=== PATIENT | female | born 1945 | race Caucasian/White ===

== ENCOUNTER → 2017-10-09 | Outpatient (CLI) | payer MEDICARE ==
--- NOTE | 2017-10-10 09:02 | BD ---
EXAMINATION TYPE: Axial Bone Density DATE OF EXAM: 10/09/2017 COMPARISON: NONE CLINICAL HISTORY: Height: 64 IN Weight: 306 LBS RISK FACTORS HISTORY OF: Active: MINIMAL Diet low in dairy products/other sources of calcium: YES Postmenopausal woman: AGE 63 MEDICATIONS: Osteoporosis Medications: YES Which medication: ALENDRONATE SODIUM How Lon YEARS Additional Medications: AREDS, ALENDRONATE SODIUM, METOPROLOL, FUROSEMIDE, KLOR-CON, FOLIC ACID, GLIM EPIRIDE, VIT D3, LISINOPRIL, SIMVASTATIN EXAM MEASUREMENTS: Bone mineral densitometry was performed using the [employer] System. Bone mineral density as measured about the Lumbar spine is: ----- L1-L4(G/cm2): 1.389 T Score Values are as follows: ----- L2: 0.4 ----- L3: 1.5 ----- L4: 2.7 ----- L1-L4: 1.7 Bone mineral density BASELINE Bone mineral density about the R hip (g/cm2): 1.028 Bone mineral density about the L hip (g/cm2): 0.844 T Score values are as follows: -----R Neck: -0.1 -----L Neck: -1.4 -----R Total: -1.9 -----L Total: -1.9 Bone mineral density BASELINE IMPRESSION: Osteopenia (T Score between -2.5 and -1) overall in both hips. There is slightly increased risk of fracture and the patient may be considered for treatment. Re-Screen 2-5 years. NOTE: T-SCORE=SD OF THE YOUNG ADULT MEAN.
--- NOTE | 2017-10-22 10:04 | MM ---
Reason for exam: screening (asymptomatic). Last mammogram was performed 2 years and 4 months ago. History: Patient is postmenopausal. Took hormonal contraceptives for 3 months. Physical Findings: A clinical breast exam by your physician is recommended on an annual basis and results should be correlated with mammographic findings. MG Screening Mammo w CAD Bilateral CC and MLO view(s) were taken. XCCL view(s) were taken of the right breast. XCCM view(s) were taken of the left breast. Prior study comparison: May 26, 2015, mammogram, performed at [facility]. There are scattered fibroglandular densities. There is no discrete abnormality. No significant changes when compared with prior studies. ASSESSMENT: Negative, BI-RAD 1 RECOMMENDATION: Routine screening mammogram of both breasts in 1 year.
== END | disposition home or self-care (01) ==
LOC: RADMAMWWP 13:46
PROVIDERS: ATTEND General Practice
DX: Z12.31 Encounter for screening mammogram for malignant neoplasm of breast (principal); M85.89 Other specified disorders of bone density and structure, multiple sites
CPT/HCPCS: 77067; 77080

== ENCOUNTER 2023-08-08 04:39 | Inpatient (IN) | payer MEDICARE ==
--- NOTE | 2023-08-08 04:47 | ED ---
General Adult HPI - General Stated complaint: High potassium Time Seen by Provider: 08/08/23 04:43 - History of Present Illness Initial comments: Dictation was produced using [employer] dictation software. please excuse any grammatical, word or spelling errors. Chief Complaint: 77-year-old female presents with hyperkalemia History of Present Illness: Patient 77-year-old female multiple comorbidities she lives at the long-term. Patient had blood work drawn yesterday. The results came back and patient was found to have a potassium of 6.8. Patient does not have any acute complaints. Patiently allegedly has history of dementia. Patient has stage III chronic kidney disease. The ROS documented in this emergency department record has been reviewed and confirmed by me. Those systems with pertinent positive or negative responses have been documented in the HPI. All other systems are other negative and/or noncontributory. - Related Data Allergies Allergy/AdvReac Type Severity Reaction Status Date / Time Sulfa (Sulfonamide Allergy Swelling Verified 08/08/23 04:49 Antibiotics) Review of Systems ROS Statement: Those systems with pertinent positive or pertinent negative responses have been documented in the HPI. ROS Other: All systems not noted in ROS Statement are negative. General Exam - General Exam Comments Initial Comments: PHYSICAL EXAM: General Impression: Alert and oriented x3, not in acute distress HEENT: Normocephalic atraumatic, extra-ocular movements intact, pupils equal and reactive to light bilaterally, mucous membranes moist. Cardiovascular: Heart regular rate and rhythm Chest: Able to complete full sentences, no retractions, no tachypnea Abdomen: abdomen soft, non-tender, non-distended, no organomegaly Musculoskeletal: Pulses present and equal in all extremities, no peripheral edema Motor: no focal deficits noted Neurological: CN II-XII grossly intact, no focal motor or sensory deficits noted Skin: Intact with no visualized rashes Psych: Normal affect and mood Course Vital Signs 08/08/23 08/08/23 04:40 05:15 Temperature 97.6 F Pulse Rate 73 60 Respiratory 18 18 Rate Blood Pressure 97/50 92/45 O2 Sat by Pulse 98 98 Oximetry EKG Findings - EKG Comments: EKG Findings:: My EKG interpretation: Ventricular rate 60,. Well 206, QRS 163, QTc 408. No obvious P waves to suggest sinus rhythm.. No [place] prolongation, no QTC prolongation, no ST or T-wave changes noted. Overall this EKG is nonspecific. Medical Decision Making - Medical Decision Making Was pt. sent in by a medical professional or institution (BIENVENIDO Silva, PRENATAL NURSE, urgent care, hospital, or long-term...) When possible be specific @ -No Did you speak to anyone other than the patient for history (EMS, parent, family, police, friend...)? What history was obtained from this source @ -No Did you review nursing and triage notes (agree or disagree)? Why? @ -I reviewed and agree with nursing and triage notes Were old charts reviewed (outside hosp., previous admission, EMS record, old EKG, old radiological studies, urgent care reports/EKG's, long-term records)? Report findings @ -No old charts were reviewed Differential Diagnosis (chest pain, altered mental status, abdominal pain women, abdominal pain men, vaginal bleeding, musculoskeletal, weakness, fever, dyspnea, syncope, headache, dizziness, GI bleed, back pain, seizure, CVA, palpatations, mental health)? @ -Differential Weakness: Hypoglycemia, shock, sepsis, hyponatremia, anemia, infection, OK, ETOH, adverse medicine reaction, overdose, stroke, this is not meant to be an all-inclusive list. EKG interpreted by me (3pts min.). @ -None done X-rays interpreted by me (1pt min.). @ -None done CT interpreted by me (1pt min.). @ -None done U/S interpreted by me (1pt. min.). @ -None done What testing was considered but not performed or refused? (CT, X-rays, U/S, labs)? Why? @ -None What meds were considered but not given or refused? Why? @ -None Did you discuss the management of the patient with other professionals (professionals i.e. BIENVENIDO Silva, PRENATAL NURSE, lab, RT, psych nurse, social science analyst, wheel braider, teacher, flight radio officer, briefcase sewer)? Give summary @ -Case discussed with hospitalist for admission Was smoking cessation discussed for >3mins.? @ -No Was critical care preformed (if so, how long)? @ -No Were there social determinants of health that impacted care today? How? (Homelessness, low income, unemployed, alcoholism, drug addiction, transportation, low edu. Level, literacy, decrease access to med. care, long term, rehab)? @ -No Was there de-escalation of care discussed even if they declined (Discuss DNR or withdrawal of care, Hospice)? DNR status @ -No What co-morbidities impacted this encounter? (DM, HTN, Smoking, COPD, CAD, Cancer, CVA, ARF, Chemo, Hep., AIDS, mental health diagnosis, sleep apnea, morbid obesity)? @ -None Was patient admitted / discharged? Hospital course, mention meds given and route, prescriptions, significant lab abnormalities, going to OR and other pertinent info. @ -77-year-old female presents emergency department for hyperkalemia. Patient denies any complaints. Vital signs are stable. Patient allegedly had a potassium of 6.8 performed on outpatient labs. Patient does have history of CKD. Laboratory evaluation obtained. CBC within acceptable limits. Metabolic panel shows potassium of 6.5, elevated renal function with creatinine 3.16 and a BUN of 99. No old labs for comparison. Patient given hyperkalemia cocktail. She does have a pacemaker. Patient reevaluated at bedside 6:30 AM found to be stable to admission. Patient be admitted consultation to nephrology. Undiagnosed new problem with uncertain prognosis? @ -No Drug Therapy requiring intensive monitoring for toxicity (Heparin, Nitro, Insulin, Cardizem)? @ -No Were any procedures done? @ -No Diagnosis/symptom? Acute, or Chronic, or Acute on Chronic? Uncomplicated (without systemic symptoms) or Complicated (systemic symptoms)? @ -Acute kidney failure complicated by hyperkalemia Side effects of treatment? @ -No Exacerbation, Progression, or Severe Exacerbation? @ -No Poses a threat to life or bodily function? How? (Chest pain, USA, OK, pneumonia, PE, COPD, DKA, ARF, appy, cholecystitis, CVA, Diverticulitis, Homicidal, Suicidal, threat to staff... and all critical care pts) @ -yes - Lab Data Result diagrams: 08/08/23 04:47 08/08/23 04:47 Lab Results 08/08/23 08/08/23 Range/Units 04:47 04:47 WBC 8.2 (3.8-10.6) k/uL RBC 3.10 L (3.80-5.40) m/uL Hgb 9.4 L (11.4-16.0) gm/dL Hct 28.7 L (34.0-46.0) % MCV 92.4 (80.0-100.0) fL MCH 30.4 (25.0-35.0) pg MCHC 32.9 (31.0-37.0) g/dL RDW 13.0 (11.5-15.5) % Plt Count 279 (150-450) k/uL MPV 8.1 Neutrophils % 70 % Lymphocytes % 13 % Monocytes % 7 % Eosinophils % 7 % Basophils % 1 % Neutrophils # 5.7 (1.3-7.7) k/uL Lymphocytes # 1.1 (1.0-4.8) k/uL Monocytes # 0.6 (0-1.0) k/uL Eosinophils # 0.6 (0-0.7) k/uL Basophils # 0.1 (0-0.2) k/uL Sodium 136 L (137-145) mmol/L Potassium 6.5 H* (3.5-5.1) mmol/L Chloride 114 H (98-107) mmol/L Carbon Dioxide 12 L (22-30) mmol/L Anion Gap 10 mmol/L BUN 99 H (7-17) mg/dL Creatinine 3.16 H (0.52-1.04) mg/dL Est GFR (CKD-EPI)AfAm 15 (>60 ml/min/1.73 sqM) Est GFR (CKD-EPI)NonAf 13 (>60 ml/min/1.73 sqM) Glucose 102 H (74-99) mg/dL Calcium 11.3 H (8.4-10.2) mg/dL Magnesium 1.9 (1.6-2.3) mg/dL Disposition Clinical Impression: Hyperkalemia Disposition: ADMITTED IP TO THIS HOSP Condition: Serious Referrals: Jony Dillard MD [Primary Care Provider] - 1-2 days Decision Time: 06:30
[2023-08-08 04:58] LABS: Basophils # (A) 0.1 k/uL (0-0.2); Basophils % (A) 1 %; Eosinophils # (A) 0.6 k/uL (0-0.7); Eosinophils % (A) 7 %; HCT 28.7 % (34.0-46.0); HGB 9.4 gm/dL (11.4-16.0); Lymphocytes # (A) 1.1 k/uL (1.0-4.8); Lymphocytes % (A) 13 %; MCH 30.4 pg (25.0-35.0); MCHC 32.9 g/dL (31.0-37.0); MCV 92.4 fL (80.0-100.0); Mean Platelet Volume 8.1; Monocytes # (A) 0.6 k/uL (0-1.0); Monocytes % (A) 7 %; Neutrophils # (A) 5.7 k/uL (1.3-7.7); Neutrophils % (A) 70 %; Platelet Count 279 k/uL (150-450); WBC 8.2 k/uL (3.8-10.6)
[2023-08-08 05:38] LABS: African American GFR (CKD) 15 (>60 ml/min/1.73 sqM); Anion Gap 10 mmol/L; Blood Urea Nitrogen 99 mg/dL (7-17); Calcium 11.3 mg/dL (8.4-10.2); Carbon Dioxide 12 mmol/L (22-30); Chloride 114 mmol/L (98-107); Glucose 102 mg/dL (74-99); Magnesium 1.9 mg/dL (1.6-2.3); Non-African American GFR(CKD) 13 (>60 ml/min/1.73 sqM); Sodium 136 mmol/L (137-145)
[2023-08-08 05:55] LABS: Potassium 6.5 mmol/L (3.5-5.1)
[2023-08-08] MEDS ORDERED: NALOXONE 0.4 MG/ML 1 ML VIAL IV PRN (06:22)
[2023-08-08] MEDS: SODIUM BICARB 8.4% 50 ML SYR (1 MEQ/ML) IV ONE (06:37)
[2023-08-08] MEDS: DEXTROSE 50% SYRINGE 50 ML IVP ONE (06:42)
[2023-08-08] MEDS: INSULIN REGULAR 100 UNIT/ML VIAL (IV) IV ONE (06:43)
[2023-08-08] MEDS: SODIUM CHLORIDE 0.9% 1,000 ML IV SCH (06:44)
[2023-08-08] MEDS: CALCIUM GLUCONATE IN NACL 1 GM in SALINE 1 100ML.BAG IVPB ONE (06:44)
[2023-08-08] MEDS: SODIUM ZIRCONIUM CYCLOSILICATE 10 GM PACKET PO ONE (06:47)
[2023-08-08] MEDS: ALBUTEROL NEB (CONC) 2.5 MG/0.5 ML INHALATION ONE (06:47)
[2023-08-08 07:24] LABS: Glucose,Whole Blood 220 mg/dL (70-110)
[2023-08-08] MEDS ORDERED: ACETAMINOPHEN TAB 325 MG TAB PO PRN (09:36)
[2023-08-08] MEDS ORDERED: PSYLLIUM HUSK 100% 6 GM PACKET PO PRN (09:37)
[2023-08-08] MEDS: ALBUTEROL NEBULIZED 2.5 MG/3 ML INHALATION PRN (11:03)
[2023-08-08] MEDS: LEVOTHYROXINE 50 MCG TAB PO SCH (11:28)
[2023-08-08] MEDS: DAPAGLIFLOZIN PROPANEDIOL 5 MG TABLET PO SCH (11:28)
[2023-08-08] MEDS: MULTIVITAMINS, THERA 1 EACH TAB PO SCH (11:28)
[2023-08-08] MEDS: FOLIC ACID 1 MG TAB PO SCH (11:28)
[2023-08-08] MEDS: HYDROCORTISONE 1% CREAM 30 GM TUBE TOPICAL SCH (11:29)
[2023-08-08] MEDS: DEXTROSE 5% IN WATER 1,000 ML with SODIUM BICARB (1 MEQ/ML) 150 ML IV SCH (11:53)
--- NOTE | 2023-08-08 12:00 | US ---
EXAMINATION TYPE: US kidneys/renal and bladder DATE OF EXAM: 08/08/2023 COMPARISON: NONE CLINICAL INDICATION: Female, 77 years old with history of diogenes; diogenes Exam limited due to body habitus EXAM MEASUREMENTS: Right Kidney: 8.9 x 5.3 x 4.8 cm Left Kidney: 9.6 x 4.7 x 4.8 cm Right Kidney: No hydronephrosis or masses seen. Fat strands seen adjacent to kidney Left Kidney: No hydronephrosis or masses seen. Fat strands seen adjacent to kidney Bladder: mostly empty Bilateral Jets seen: No Renal sizes are lower limits of normal appeared increased cortical echogenicity. There is no evidence for hydronephrosis at this point in time. No nephrolithiasis is seen. No masses are identified on images obtained. The urinary bladder is poorly distended. Bilateral ureteral jets are not seen. IMPRESSION: Evidence of chronic medical renal disease. No hydronephrosis seen bilaterally.
--- NOTE | 2023-08-08 12:30 | XR ---
EXAMINATION TYPE: XR chest 1V DATE OF EXAM: 08/08/2023 CLINICAL HISTORY: Infiltrate TECHNIQUE: Single frontal view of the chest is obtained. COMPARISON: None FINDINGS: There is mild cardiomegaly with dual lead pacemaker. Increased left lung opacity is seen. R ight lung is clear. The osseous structures are demineralized. IMPRESSION: Mild cardiomegaly with diffuse left lung edema and/or acute infiltrate. Progress two-view chest x-ray advised.
--- NOTE | 2023-08-08 13:24 | P.NPCON ---
History of Present Illness - Reason for Consult acute renal failure - History of Present Illness patient is a 77-year-old female who resides at [facility] and was sent into the hospital for elevated potassium of 6.8. Patient is noted to be significantly acidotic with CO2 of 12. Calcium was elevated at 11.3. Creatinine was 3.1 and blood pressure has been low with systolic in the 70s. Maintained on LAURENCE inhibitor's, Aldactone, metformin and Bumex prior to admission. No NSAIDs noted. Patient admits to increased intake of potassium-containing foods recently. No significant constipation. Patient has been voiding. previous creatinine 1.5 on 05/18/2023. Review of Systems as per HPI Past Medical History Past Medical History: Heart Failure, Diabetes Mellitus, Hyperlipidemia, Hypertension, Renal Disease, Rheumatoid Arthritis (RA), Thyroid Disorder History of Any Multi-Drug Resistant Organisms: None Reported Past Surgical History: No Surgical Hx Reported Past Psychological History: No Psychological Hx Reported Smoking Status: Never smoker Past Alcohol Use History: None Reported Past Drug Use History: None Reported Medications and Allergies Home Medications Medication Instructions Recorded Confirmed Type Acetaminophen [Tylenol 8 Hour] 650 mg PO Q6H PRN 08/08/23 08/08/23 History Albuterol Nebulized [Ventolin 2.5 mg INHALATION RT-Q4H PRN 08/08/23 08/08/23 History Nebulized] Apixaban [Eliquis] 5 mg PO BID@0800,1600 08/08/23 08/08/23 History Bumetanide [Bumex] 1 mg PO DAILY@0800 08/08/23 08/08/23 History Empagliflozin [Jardiance] 10 mg PO DAILY 08/08/23 08/08/23 History Ergocalciferol (Vitamin D2) 1,250 mcg PO TH 08/08/23 08/08/23 History [Drisdol (50,000 Iu)] Eucerin Itch Relief Lotion 0.1% 1 applic TOPICAL BID 08/08/23 08/08/23 History Folic Acid 0.8 mg PO DAILY 08/08/23 08/08/23 History Hydrocortisone Cream 1 applic TOPICAL BID 08/08/23 08/08/23 History [Hydrocortisone 1% Cream] Levothyroxine Sodium [Synthroid] 50 mcg PO DAILY 08/08/23 08/08/23 History Metoprolol Succinate (ER) [Toprol 50 mg PO DAILY 08/08/23 08/08/23 History Xl] Multivitamins, Thera [Multivitamin 1 tab PO DAILY 08/08/23 08/08/23 History (formulary)] Psyllium Husk (with Sugar) 1 tsp PO DAILY PRN 08/08/23 08/08/23 History [Metamucil Powder] Simvastatin [Zocor] 40 mg PO HS 08/08/23 08/08/23 History Spironolactone [Aldactone] 125 mg PO DAILY 08/08/23 08/08/23 History lisinopriL [Zestril] 10 mg PO DAILY 08/08/23 08/08/23 History metFORMIN HCL [Glucophage] 500 mg PO BID@0800,1600 08/08/23 08/08/23 History Allergies Allergy/AdvReac Type Severity Reaction Status Date / Time Sulfa (Sulfonamide Allergy Swelling Verified 08/08/23 08:44 Antibiotics) Physical Exam Vitals: Vital Signs Temp Pulse Resp BP Pulse Ox 08/08/23 11:22 63 08/08/23 11:03 63 08/08/23 10:47 63 17 75/30 08/08/23 09:57 61 18 84/35 97 08/08/23 09:00 67 18 86/40 98 08/08/23 08:03 89/34 08/08/23 07:38 97.7 F 68 18 87/54 98 08/08/23 06:53 61 18 08/08/23 06:48 61 18 100/42 99 08/08/23 06:47 62 18 08/08/23 05:15 60 18 92/45 98 08/08/23 04:40 97.6 F 73 18 97/50 98 Intake and Output 08/07/23 08/08/23 08/08/23 22:59 06:59 14:59 Output Total 121 Balance -121 Output: Post Void Residual 121 Other: Weight 110.677 kg patient is awake, comfortable, no acute distress. Alert oriented 3. Examination of the heart S1 and S2 Examination of the lungs bilateral breath sounds are heard Abdomen is soft nontender Examination of lower extremity shows no significant edema LACE STRIPPER exam grossly intact Results - Lab Results Most recent lab results Calcium 11.3 mg/dL (8.4-10.2) H 08/08/23 04:47 Magnesium 1.9 mg/dL (1.6-2.3) 08/08/23 04:47 08/08/23 04:47 08/08/23 09:38 Assessment and Plan Assessment: 1. Acute kidney injury, ATN, nonoliguric secondary to hypotension in the setting of use of LAURENCE inhibitor's. Rule out obstructive uropathy.check UA and ultrasound of the kidneys. 2. Hyperkalemia associated with acute kidney injury metabolic acidosis and use of laurence inhibitors and Aldactone. Currently improved to 5.4. 3. Hypercalcemia associated with volume depletion. Patient denies use of calcium supplements. maintained on IV fluids. 4. Type 2 diabetes maintained on metformin 6. Non-gap metabolic acidosis associated with acute kidney injury. Patient was also on metformin. Lactic acid levels will be ordered. Plan: start IV bicarb. Check bladder scan rule out urine retention. Check ultrasound of the kidneys. Check urine analysis Check lactic acid Obtain workup for hypercalcemia. Continue to hold LAURENCE inhibitor's metformin Aldactone and diuretics. Repeat labs in a.m. Thank you for the consultation. We will continue to follow the patient with you during her hospitalization.
--- NOTE | 2023-08-08 15:12 | P.HPIM ---
History of Present Illness H&P Date: 08/08/23 Chief Complaint: Hi potassium Pleasant 77-year-old patient follows with Dr. Dillard. Currently a resident of [facility]. Chronic stable medical condition include CHF, diabetes hypertension hyperlipidemia chronic kidney disease rheumatoid arthritis hypoth yroid. Patient nonambulatory does not ambulate for about 3 years. Patient was sent in for a potassium of 6.8. Patient's creatinine was 3.3. Note patient's creatinine was 1.5 in May 17 of this year. Patient received calcium gluconate, insulin, sodium bicarbonate and Lokelma earlier today. Patient otherwise asymptomatic. Review of systems: GEN.: None EYES: None HEENT: None NECK: None RESPIRATORY: None CARDIOVASCULAR: None GASTROINTESTINAL: None GENITOURINARY: None MUSCULOSKELETAL: Some joint pains LYMPHATICS: None HEMATOLOGICAL: None PSYCHIATRY: None NEUROLOGICAL: Patient nonambulatory Social history: No smoking. No alcohol. Resident of [facility]. Physical examination: VITAL SIGNS: 97.7, 68, 18, 87/54, 98% room air GENERAL: BMI 40.6, reclining bed awake. EYES: Pupils equal. Conjunctiva maxwell l. HEENT: External appearance of nose and ears normal, oral cavity grossly normal. NECK: JVD not raised; masses not palpable. HEART: First and second heart sounds are normal; no edema. LUNGS: Respiratory rate normal; clear to auscultation. ABDOMEN: Soft, nontender, liver spleen not palpable, no masses palpable. PSYCH: Alert and oriented x3; mood and affect maxwell l. MUSCULOSKELETAL:No Clubbing/cyanosis;muscles-grossly intact NEUROLOGICAL: Cranial nerves grossly intact; no facial asymmetry, has sensation lower extremity. Power 1/5. LYMPHATICS: No lymph nodes palpable in the axilla and neck INVESTIGATIONS, reviewed in the clinical context: EKG tracing personally reviewed by me-ventricular paced rhythm Chest x-ray film personally reviewed by me-portable. Cardiomegaly.'s possible venous prominence Renal ultrasound: Increased cortical echogenicity. No hydronephrosis. August 08, 2023: White count 8.2 hemoglobin 9.4 platelets 279 sodium 136 bicarb 12 potassium 6.5 BUN 99 creatinine 3.16. Repeat potassium 5.4 Previous labs: May 18, 2023: Creatinine 1.5 Assessment and plan: -Hyperkalemia secondary to chronic kidney disease. Patient also on Aldactone. And Zestril. Both Aldactone and Zestril been held. Placed on renal diet. Received sodium bicarbonate. Lokelma. Insulin. -Chronic kidney disease stage IV possibly nephrosclerosis Renal ultrasound shows evidence of chronic kidney disease Sodium bicarbonate drip to correct out any acute component -Metabolic acidosis from chronic kidney disease Sodium bicarbonate drip -Hypothyroid Synthroid 50 mcg a day -Hyperlipidemia Lipitor -History of atrial fibrillation. Currently pacemaker Eliquis -Diabetes mellitus type 2 on oral hypoglycemic Diabetic diet. Follow Accu-Cheks and sliding scale. Stop metformin because of GFR less than 30. Farxiga -Essential hypertension Toprol-XL. -Morbid obesity BMI 40.6 Weight loss measures -Chronic medical debility patient is nonambulatory -Full code Past Medical History Past Medical History: Heart Failure, Diabetes Mellitus, Hyperlipidemia, Hypertension, Renal Disease, Rheumatoid Arthritis (RA), Thyroid Disorder History of Any Multi-Drug Resistant Organisms: None Reported Past Surgical History: No Surgical Hx Reported Past Psychological History: No Psychological Hx Reported Smoking Status: Never smoker Past Alcohol Use History: None Reported Past Drug Use History: None Reported Medications and Allergies Home Medications Medication Instructions Recorded Confirmed Type Acetaminophen [Tylenol 8 Hour] 650 mg PO Q6H PRN 08/08/23 08/08/23 History Albuterol Nebulized [Ventolin 2.5 mg INHALATION RT-Q4H PRN 08/08/23 08/08/23 History Nebulized] Apixaban [Eliquis] 5 mg PO BID@0800,1600 08/08/23 08/08/23 History Bumetanide [Bumex] 1 mg PO DAILY@0800 08/08/23 08/08/23 History Empagliflozin [Jardiance] 10 mg PO DAILY 08/08/23 08/08/23 History Ergocalciferol (Vitamin D2) 1,250 mcg PO TH 08/08/23 08/08/23 History [Drisdol (50,000 Iu)] Eucerin Itch Relief Lotion 0.1% 1 applic TOPICAL BID 08/08/23 08/08/23 History Folic Acid 0.8 mg PO DAILY 08/08/23 08/08/23 History Hydrocortisone Cream 1 applic TOPICAL BID 08/08/23 08/08/23 History [Hydrocortisone 1% Cream] Levothyroxine Sodium [Synthroid] 50 mcg PO DAILY 08/08/23 08/08/23 History Metoprolol Succinate (ER) [Toprol 50 mg PO DAILY 08/08/23 08/08/23 History Xl] Multivitamins, Thera [Multivitamin 1 tab PO DAILY 08/08/23 08/08/23 History (formulary)] Psyllium Husk (with Sugar) 1 tsp PO DAILY PRN 08/08/23 08/08/23 History [Metamucil Powder] Simvastatin [Zocor] 40 mg PO HS 08/08/23 08/08/23 History Spironolactone [Aldactone] 125 mg PO DAILY 08/08/23 08/08/23 History lisinopriL [Zestril] 10 mg PO DAILY 08/08/23 08/08/23 History metFORMIN HCL [Glucophage] 500 mg PO BID@0800,1600 08/08/23 08/08/23 History Allergies Allergy/AdvReac Type Severity Reaction Status Date / Time Sulfa (Sulfonamide Allergy Swelling Verified 08/08/23 08:44 Antibiotics) Physical Exam Vitals: Vital Signs Temp Pulse Resp BP Pulse Ox 08/08/23 11:22 63 08/08/23 11:03 63 08/08/23 10:47 63 17 75/30 08/08/23 09:57 61 18 84/35 97 08/08/23 09:00 67 18 86/40 98 08/08/23 08:03 89/34 08/08/23 07:38 97.7 F 68 18 87/54 98 08/08/23 06:53 61 18 08/08/23 06:48 61 18 100/42 99 08/08/23 06:47 62 18 08/08/23 05:15 60 18 92/45 98 08/08/23 04:40 97.6 F 73 18 97/50 98 Intake and Output 08/07/23 08/08/23 08/08/23 22:59 06:59 14:59 Output Total 121 Balance -121 Output: Post Void Residual 121 Other: Weight 110.677 kg Results CBC & Chem 7: 08/08/23 04:47 08/08/23 09:38 Labs: Abnormal Lab Results - Last 24 Hours (Table) 08/08/23 08/08/23 08/08/23 Range/Units 04:47 04:47 07:22 RBC 3.10 L (3.80-5.40) m/uL Hgb 9.4 L (11.4-16.0) gm/dL Hct 28.7 L (34.0-46.0) % Sodium 136 L (137-145) mmol/L Potassium 6.5 H* (3.5-5.1) mmol/L Chloride 114 H (98-107) mmol/L Carbon Dioxide 12 L (22-30) mmol/L BUN 99 H (7-17) mg/dL Creatinine 3.16 H (0.52-1.04) mg/dL Glucose 102 H (74-99) mg/dL POC Glucose (mg/dL) 220 H (70-110) mg/dL Calcium 11.3 H (8.4-10.2) mg/dL 08/08/23 Range/Units 09:38 RBC (3.80-5.40) m/uL Hgb (11.4-16.0) gm/dL Hct (34.0-46.0) % Sodium (137-145) mmol/L Potassium 5.4 H (3.5-5.1) mmol/L Chloride (98-107) mmol/L Carbon Dioxide (22-30) mmol/L BUN (7-17) mg/dL Creatinine (0.52-1.04) mg/dL Glucose (74-99) mg/dL POC Glucose (mg/dL) (70-110) mg/dL Calcium (8.4-10.2) mg/dL
[2023-08-08] MEDS: APIXABAN 5 MG TAB PO SCH (16:26)
[2023-08-08] MEDS: ATORVASTATIN 20 MG TAB PO SCH (21:27)
[2023-08-09 05:56] LABS: Glucose,Whole Blood 148 mg/dL (70-110)
[2023-08-09] MEDS ORDERED: BUMETANIDE 1 MG TAB PO SCH (08:00)
[2023-08-09] MEDS: ERGOCALCIFEROL 1,250 MCG (50,000 IU) CAPSULE PO SCH (09:48)
[2023-08-09 11:14] VITALS: BMI 40.6
[2023-08-09 11:36] LABS: Glucose,Whole Blood 158 mg/dL (70-110)
--- NOTE | 2023-08-09 11:57 | P.CONS ---
History of Present Illness - Reason for Consult Consult date: 08/09/23 wound care - History of Present Illness This is a 77-year-old patient being seen 3 S. by wound care for nonhealing ulcerations to the right and left buttocks. Patient has stage II pressure ulcer to the right and left buttocks. Ulcerations have fat layer exposure with granulation seen throughout wound edges are attached to the wound base no tunneling or undermining noted. Minimal slough and nonviable tissue present. Patient's past medical history significant for CHF, diabetes, hyperlipidemia, hypertension, chronic kidney disease patient is a former smoker. Review Of Systems: Constitutional: No fever, no chills, no night sweats. No weight change. No weakness, fatigue or lethargy. No daytime sleepiness. Integumentary:reports wounds, no lesions. No rash or pruritus. No unusual bruising. No change in hair or nails. Physical exam: General Appearance: Alert, cooperative, no distress, appears stated age. Skin: See HPI all other Skin color, texture, tugor normal, no rashes or lesions. Neurologic: Alert oriented x3 Assessment: 1. Stage II pressure ulcer left buttocks 2. Stage II pressure ulcer right buttocks 3. Diabetes with skin ulceration Plan: 1. Apply honey gel and bordered foam to the site. Change Sunday. Utilize An air-filled cushion while sitting. Turn patient every 2 hours. Thank you for the consultation any questions please contact the wound care center DNP note has been reviewed and discussed with Dr. Montano and the impression and plan of care has been directed as dictated. Past Medical History Past Medical History: Heart Failure, Diabetes Mellitus, Hyperlipidemia, Hypertension, Renal Disease, Rheumatoid Arthritis (RA), Thyroid Disorder History of Any Multi-Drug Resistant Organisms: None Reported Past Surgical History: No Surgical Hx Reported Past Psychological History: No Psychological Hx Reported Smoking Status: Former smoker Past Alcohol Use History: None Reported Past Drug Use History: None Reported Medications and Allergies Home Medications Medication Instructions Recorded Confirmed Type Acetaminophen [Tylenol 8 Hour] 650 mg PO Q6H PRN 08/08/23 08/08/23 History Albuterol Nebulized [Ventolin 2.5 mg INHALATION RT-Q4H PRN 08/08/23 08/08/23 History Nebulized] Apixaban [Eliquis] 5 mg PO BID@0800,1600 08/08/23 08/08/23 History Bumetanide [Bumex] 1 mg PO DAILY@0800 08/08/23 08/08/23 History Empagliflozin [Jardiance] 10 mg PO DAILY 08/08/23 08/08/23 History Ergocalciferol (Vitamin D2) 1,250 mcg PO TH 08/08/23 08/08/23 History [Drisdol (50,000 Iu)] Eucerin Itch Relief Lotion 0.1% 1 applic TOPICAL BID 08/08/23 08/08/23 History Folic Acid 0.8 mg PO DAILY 08/08/23 08/08/23 History Hydrocortisone Cream 1 applic TOPICAL BID 08/08/23 08/08/23 History [Hydrocortisone 1% Cream] Levothyroxine Sodium [Synthroid] 50 mcg PO DAILY 08/08/23 08/08/23 History Metoprolol Succinate (ER) [Toprol 50 mg PO DAILY 08/08/23 08/08/23 History Xl] Multivitamins, Thera [Multivitamin 1 tab PO DAILY 08/08/23 08/08/23 History (formulary)] Psyllium Husk (with Sugar) 1 tsp PO DAILY PRN 08/08/23 08/08/23 History [Metamucil Powder] Simvastatin [Zocor] 40 mg PO HS 08/08/23 08/08/23 History Spironolactone [Aldactone] 125 mg PO DAILY 08/08/23 08/08/23 History lisinopriL [Zestril] 10 mg PO DAILY 08/08/23 08/08/23 History metFORMIN HCL [Glucophage] 500 mg PO BID@0800,1600 08/08/23 08/08/23 History Allergies Allergy/AdvReac Type Severity Reaction Status Date / Time Sulfa (Sulfonamide Allergy Swelling Verified 08/08/23 08:44 Antibiotics) Physical Exam Vitals: Vital Signs Temp Pulse Pulse Resp BP BP Pulse Ox 08/09/23 05:50 98/53 08/09/23 04:00 81 16 89/52 97 08/09/23 01:05 97.9 F 88 18 93/50 97 08/08/23 23:02 64 18 121/48 98 08/08/23 21:36 68 18 90/46 98 08/08/23 19:29 64 18 90/36 100 08/08/23 18:07 68 20 96/60 99 08/08/23 17:21 63 20 96/38 98 08/08/23 16:27 65 18 110/40 99 08/08/23 15:51 65 18 168/94 99 Intake and Output 08/08/23 08/09/23 08/09/23 22:59 06:59 14:59 Intake Total 118 Output Total 101 Balance 17 Intake: Oral 118 Output: Urine 100 Stool 1 Other: Voiding Method External Catheter Weight 110.677 kg 110.677 kg Results CBC & Chem 7: 08/08/23 04:47 08/08/23 09:38 Labs: Abnormal Lab Results - Last 24 Hours (Table) 08/08/23 08/09/23 08/09/23 Range/Units 14:07 05:53 11:35 POC Glucose (mg/dL) 148 H 158 H (70-110) mg/dL PTH Intact 7.3 L (14.0-72.0) pg/mL Assessment and Plan (1) Stage II pressure ulcer of left buttock Current Visit: Yes Status: Acute Code(s): L89.322 - PRESSURE ULCER OF LEFT BUTTOCK, STAGE 2 SNOMED Code(s): 79361063760567 (2) Stage II pressure ulcer of right buttock Current Visit: Yes Status: Acute Code(s): L89.312 - PRESSURE ULCER OF RIGHT BUTTOCK, STAGE 2 SNOMED Code(s): 92575986115324 (3) Type 2 diabetes mellitus with other skin ulcer Current Visit: Yes Status: Acute Code(s): E11.622 - TYPE 2 DIABETES MELLITUS WITH OTHER SKIN ULCER; L98.499 - NON-PRESSURE CHRONIC ULCER OF SKIN OF SITES W UNSP SEVERITY SNOMED Code(s): 740490582
--- NOTE | 2023-08-09 13:48 | P.PN ---
Subjective patient is seen for follow-up for acute kidney injury. Maintained on IV bicarb. Labs are pending from today. No significant complaints today. post void residual was 121 mL Objective - Vital Signs Vital signs: Vital Signs Temp 97.4 F L 08/09/23 08:00 Pulse 60 08/09/23 08:00 Resp 18 08/09/23 08:00 BP 107/61 08/09/23 08:00 Pulse Ox 97 08/09/23 08:00 FiO2 Intake & Output 08/08/23 08/09/23 08/09/23 18:59 06:59 18:59 Intake Total 236 Output Total 121 102 Balance -121 134 Weight 110.677 kg 110.677 kg Intake: Oral 236 Output: Urine 100 Post Void Residual 121 Stool 2 Other: Voiding Method External Catheter External Catheter - Exam patient is awake, comfortable, no acute distress. Alert oriented 3. Examination of the heart S1 and S2 Examination of the lungs bilateral breath sounds are heard Abdomen is soft nontender Examination of lower extremity shows no significant edema SECURITY SERVICES SPECIALIST exam grossly intact - Labs CBC & Chem 7: 08/08/23 04:47 08/08/23 09:38 Labs: Abnormal Lab Results - Last 24 Hours (Table) 08/08/23 08/09/23 08/09/23 Range/Units 14:07 05:53 11:35 POC Glucose (mg/dL) 148 H 158 H (70-110) mg/dL PTH Intact 7.3 L (14.0-72.0) pg/mL Assessment and Plan Assessment: 1. Acute kidney injury, ATN, nonoliguric secondary to hypotension in the setting of use of LAURENCE inhibitor's. No evidence of obstructive uropathy. Check U/A. 2. Hyperkalemia associated with acute kidney injury metabolic acidosis and use of laurence inhibitors and Aldactone. Currently improved to 5.4. 3. Hypercalcemia associated with volume depletion. Patient denies use of calcium supplements. maintained on IV fluids. PTH is appropriately low. 4. Type 2 diabetes maintained on metformin 6. Non-gap metabolic acidosis associated with acute kidney injury. Patient was also on metformin. Lactic acid level not elevated Plan: continue IV bicarb. Follow-up on labs from today. Continue to avoid nephrotoxic agents.
[2023-08-09 14:06] LABS: African American GFR (CKD) 20 (>60 ml/min/1.73 sqM); Anion Gap 8 mmol/L; Blood Urea Nitrogen 92 mg/dL (7-17); Calcium 10.9 mg/dL (8.4-10.2); Carbon Dioxide 20 mmol/L (22-30); Chloride 108 mmol/L (98-107); Glucose 133 mg/dL (74-99); Non-African American GFR(CKD) 17 (>60 ml/min/1.73 sqM); Potassium 5.1 mmol/L (3.5-5.1); Sodium 136 mmol/L (137-145)
[2023-08-09 16:45] LABS: Glucose,Whole Blood 168 mg/dL (70-110)
--- NOTE | 2023-08-09 17:59 | P.PN ---
Progress Note - Text Progress Note Date: 08/09/23 Chief Complaint: Hi potassium Pleasant 77-year-old patient follows with Dr. Dillard. Currently a resident of [facility]. Chronic stable medical condition include CHF, diabetes hypertension hyperlipidemia chronic kidney disease rheumatoid arthritis h ypothyroid. Patient nonambulatory does not ambulate for about 3 years. Patient was sent in for a potassium of 6.8. Patient's creatinine was 3.3. Note patient's creatinine was 1.5 in May 17 of this year. Patient received calcium gluconate, insulin, sodium bicarbonate and Lokelma earlier today. Patient otherwise asymptomatic. August 08: Propped up in bed. Eating well. Labs are pending this afternoon. Patient has stage II decub left and right buttock and coccyx.-Present on admission. Wound care discussed with nurse. Sodium bicarbonate drip Active Medications Acetaminophen (Acetaminophen Tab 325 Mg Tab) 650 mg PO Q6H PRN PRN Reason: Fever and/ or MILD Pain Albuterol Sulfate (Albuterol Nebulized 2.5 Mg/3 Ml) 2.5 mg INHALATION RT-Q4H PRN PRN Reason: COUGH/WHEEZING Last Admin: 08/08/23 11:03 Dose: 2.5 mg Apixaban (Apixaban 5 Mg Tab) 5 mg PO BID@0800,1600 [facility]; Protocol Last Admin: 08/09/23 09:47 Dose: 5 mg Atorvastatin Calcium (Atorvastatin 20 Mg Tab) 20 mg PO HS [facility] Last Admin: 08/08/23 21:27 Dose: 20 mg Dapagliflozin (Dapagliflozin Propanediol 5 Mg Tablet) 5 mg PO DAILY [facility] Last Admin: 08/09/23 09:47 Dose: 5 mg Ergocalciferol (Ergocalciferol 1,250 Mcg (50,000 Iu) Capsule) 1,250 mcg PO TH [facility] Last Admin: 08/09/23 09:48 Dose: 1,250 mcg Folic Acid (Folic Acid 1 Mg Tab) 1 mg PO DAILY [facility] Last Admin: 08/09/23 09:47 Dose: 1 mg Hydrocortisone (Hydrocortisone 1% Cream 30 Gm Tube) 1 applic TOPICAL BID [facility]; Protocol Last Admin: 08/08/23 21:28 Dose: 1 applic Sodium Chloride (Saline 0.9%) 1,000 mls @ 20 mls/hr IV .Q24H [facility] Last Admin: 08/09/23 05:58 Dose: Not Given Sodium Bicarbonate 150 ml/ (Dextrose/Water) 1,150 mls @ 80 mls/hr IV .[id number] [facility] Last Admin: 08/09/23 03:02 Dose: 80 mls/hr Levothyroxine Sodium (Levothyroxine 50 Mcg Tab) 50 mcg PO 0630 [facility] Last Admin: 08/09/23 05:59 Dose: 50 mcg Multivitamins (Multivitamins, Thera 1 Each Tab) 1 each PO DAILY [facility] Last Admin: 08/09/23 09:48 Dose: 1 each Naloxone HCl (Naloxone 0.4 Mg/Ml 1 Ml Vial) 0.2 mg IV Q2M PRN PRN Reason: Opioid Reversal Psyllium Hydrophilic Mucilloid (Psyllium Husk 100% 6 Gm Packet) 6 gm PO DAILY PRN PRN Reason: Constipation Social history: No smoking. No alcohol. Resident of [facility]. Physical examination: VITAL SIGNS: 97.8, 62, 18, 94/56, 98% room air GENERAL: BMI 40.6, reclining bed awake. EYES: Pupils equal. Conjunctiva maxwell l. HEENT: External appearance of nose and ears normal, oral cavity grossly normal. NECK: JVD not raised; masses not palpable. HEART: First and second heart sounds are normal; no edema. LUNGS: Respiratory rate normal; clear to auscultation. ABDOMEN: Soft, nontender, liver spleen not palpable, no masses palpable. PSYCH: Alert and oriented x3; mood and affect maxwell l. MUSCULOSKELETAL:No Clubbing/cyanosis;muscles-grossly intact Wounds: Stage II on left and right buttock and coccyx.-POA INVESTIGATIONS, reviewed in the clinical context: Vitamin D 25-hydroxy 70.9. PTH low at 7.3 Stool for C. difficile: Negative August 08: Potassium 5.1 BUN 92 creatinine 2.58 bicarb 20. Calcium 10.9 EKG tracing personally reviewed by me-ventricular paced rhythm Chest x-ray film personally reviewed by me-portable. Cardiomegaly.'s possible venous prominence Renal ultrasound: Increased cortical echogenicity. No hydronephrosis. August 08, 2023: White count 8.2 hemoglobin 9.4 platelets 279 sodium 136 bicarb 12 potassium 6.5 BUN 99 creatinine 3.16. Repeat potassium 5.4 Previous labs: May 18, 2023: Creatinine 1.5 Assessment and plan: -Hyperkalemia secondary to chronic kidney disease. Patient also on Aldactone. And Zestril. Both Aldactone and Zestril been held.: Better Placed on renal diet. Received sodium bicarbonate. Lokelma. Insulin. -Chronic kidney disease stage IV possibly nephrosclerosis Renal ultrasound shows evidence of chronic kidney disease Sodium bicarbonate drip to correct out any acute component -Metabolic acidosis from chronic kidney disease: Improving Sodium bicarbonate drip -Stage II decub ulcer on left buttock right buttock sacrum Wound care team follow -Hypothyroid Synthroid 50 mcg a day -Hyperlipidemia Lipitor -Secondary hypercalcemia, likely from dehydration Decreased PTH. Stop vitamin D2 supplement -History of atrial fibrillation. Currently pacemaker Eliquis -Diabetes mellitus type 2 on oral hypoglycemic Diabetic diet. Follow Accu-Cheks and sliding scale. Stop metformin because of GFR less than 30. Farxiga -Essential hypertension Toprol-XL. -Morbid obesity BMI 40.6 Weight loss measures -Chronic medical debility patient is nonambulatory -Full code Past Medical History Past Medical History: Heart Failure, Diabetes Mellitus, Hyperlipidemia, Hypertension, Renal Disease, Rheumatoid Arthritis (RA), Thyroid Disorder History of Any Multi-Drug Resistant Organisms: None Reported Past Surgical History: No Surgical Hx Reported Past Psychological History: No Psychological Hx Reported Smoking Status: Never smoker Past Alcohol Use History: None Reported Past Drug Use History: None Reported Medications and Allergies
[2023-08-09 20:04] LABS: Glucose,Whole Blood 219 mg/dL (70-110)
[2023-08-09] MEDS: INSULIN ASPART (NovoLOG) 100 UNIT/ML VIAL SQ SCH (21:53)
[2023-08-10 06:07] LABS: Glucose,Whole Blood 150 mg/dL (70-110)
[2023-08-10 10:47] VITALS: RESP 18
[2023-08-10 10:48] LABS: African American GFR (CKD) 21 (>60 ml/min/1.73 sqM); Anion Gap 5 mmol/L; Blood Urea Nitrogen 75 mg/dL (7-17); Calcium 10.6 mg/dL (8.4-10.2); Carbon Dioxide 27 mmol/L (22-30); Chloride 103 mmol/L (98-107); Glucose 158 mg/dL (74-99); Non-African American GFR(CKD) 18 (>60 ml/min/1.73 sqM); Potassium 4.7 mmol/L (3.5-5.1); Sodium 135 mmol/L (137-145)
--- NOTE | 2023-08-10 11:43 | P.DS ---
Providers Date of admission: 08/08/23 06:24 Expected date of discharge: 08/10/23 Attending physician: Mayo Miller Consults: 08/08/23 06:11 Consult Physician Routine Consulting Provider: Anamaria Velarde Consult Reason/Comments: Hyperkalemia Do you want consulting provider notified?: Yes Primary care physician: [facility] Course: Chief Complaint: Hi potassium Pleasant 77-year-old patient follows with Dr. Dillard. Currently a resident of [facility]. Chronic stable medical condition include CHF, diabetes hypertension hyperlipidemia chronic kidney disease rheumatoid arthritis hypothyroid. Patient nonambulatory does not ambulate for about 3 years. Patient was sent in for a potassium of 6.8. Patient's creatinine was 3.3. Note patient's creatinine was 1.5 in May 17 of this year. Patient received calcium gluconate, insulin, sodium bicarbonate and Lokelma earlier today. Patient otherwise asymptomatic. August 08: Propped up in bed. Eating well. Labs are pending this afternoon. Patient has stage II decub left and right buttock and coccyx.-Present on admission. Wound care discussed with nurse. Sodium bicarbonate drip August 09: Potassium down to 4.7. Creatinine 2.45. Bicarb 27. Blood pressure running on the lower side. Patient's Toprol-XL, Aldactone, metformin, Zestril all discontinued. Bumex will be changed to 1 mg Sunday. Repeat labs in 3 days Patient oral intake fair. Discussion and discharge planning more than 35 minutes Social history: No smoking. No alcohol. Resident of [facility]. Physical examination: VITAL SIGNS: 97.6, 62, 18, 119/51, 99% room air GENERAL: BMI 40.6, comfortable EYES: Pupils equal. Conjunctiva maxwell l. HEENT: External appearance of nose and ears normal, oral cavity grossly normal. NECK: JVD not raised; masses not palpable. HEART: First and second heart sounds are normal; no edema. LUNGS: Respiratory rate normal; clear to auscultation. ABDOMEN: Soft, nontender, liver spleen not palpable, no masses palpable. PSYCH: Alert and oriented x3; mood and affect maxwell l. MUSCULOSKELETAL:No Clubbing/cyanosis;muscles-grossly intact Wounds: Stage II on left and right buttock and coccyx.-POA INVESTIGATIONS, reviewed in the clinical context: Vitamin D 25-hydroxy 70.9. PTH low at 7.3 Stool for C. difficile: Negative August 08: Potassium 5.1 BUN 92 creatinine 2.58 bicarb 20. Calcium 10.9 EKG tracing personally reviewed by me-ventricular paced rhythm Chest x-ray film personally reviewed by me-portable. Cardiomegaly.'s possible venous prominence Renal ultrasound: Increased cortical echogenicity. No hydronephrosis. August 08, 2023: White count 8.2 hemoglobin 9.4 platelets 279 sodium 136 bicarb 12 potassium 6.5 BUN 99 creatinine 3.16. Repeat potassium 5.4 Previous labs: May 18, 2023: Creatinine 1.5 Assessment and plan: -Hyperkalemia secondary to chronic kidney disease. Patient also on Aldactone. And Zestril. Both Aldactone and Zestril been held.: Better Placed on renal diet. Received sodium bicarbonate. Lokelma. Insulin. -Chronic kidney disease stage IV possibly nephrosclerosis Renal ultrasound shows evidence of chronic kidney disease Sodium bicarbonate drip to correct out any acute component -Metabolic acidosis from chronic kidney disease: Improving Sodium bicarbonate drip -Stage II decub ulcer on left buttock right buttock sacrum Wound care team follow with orders -Hypothyroid Synthroid 50 mcg a day -Hyperlipidemia Lipitor -Secondary hypercalcemia, likely from dehydration Decreased PTH. Stop vitamin D2 supplement -History of atrial fibrillation. Currently pacemaker Eliquis -Diabetes mellitus type 2 on oral hypoglycemic Diabetic diet. Follow Accu-Cheks and sliding scale. Stop metformin because of GFR less than 30. Farxiga -Essential hypertension Toprol-XL. -Morbid obesity BMI 40.6 Weight loss measures -Chronic medical debility patient is nonambulatory -Full code Disposition: Return to [facility]. Long-term resident Past Medical History Past Medical History: Heart Failure, Diabetes Mellitus, Hyperlipidemia, Hypertension, Renal Disease, Rheumatoid Arthritis (RA), Thyroid Disorder History of Any Multi-Drug Resistant Organisms: None Reported Past Surgical History: No Surgical Hx Reported Past Psychological History: No Psychological Hx Reported Smoking Status: Never smoker Past Alcohol Use History: None Reported Past Drug Use History: None Reported Medications and Allergies Plan - Discharge Summary Discharge Rx Participant: No New Discharge Prescriptions: Continue Apixaban [Eliquis] 5 mg PO BID@0800,1600 Ergocalciferol (Vitamin D2) [Drisdol (50,000 Iu)] 1,250 mcg PO TH Levothyroxine Sodium [Synthroid] 50 mcg PO DAILY Eucerin Itch Relief Lotion 0.1% 1 applic TOPICAL BID Psyllium Husk (with Sugar) [Metamucil Powder] 1 tsp PO DAILY PRN PRN Reason: Constipation Albuterol Nebulized [Ventolin Nebulized] 2.5 mg INHALATION RT-Q4H PRN PRN Reason: COUGH/WHEEZING Acetaminophen [Tylenol 8 Hour] 650 mg PO Q6H PRN PRN Reason: Fever And/ Or Pain Hydrocortisone Cream [Hydrocortisone 1% Cream] 1 applic TOPICAL BID Simvastatin [Zocor] 40 mg PO HS Multivitamins, Thera [Multivitamin (formulary)] 1 tab PO DAILY Folic Acid 0.8 mg PO DAILY Empagliflozin [Jardiance] 10 mg PO DAILY Changed Bumetanide [BUMEX] 1 mg PO MOWEFR #0 Discontinued Metoprolol Succinate (ER) [Toprol Xl] 50 mg PO DAILY Spironolactone [Aldactone] 125 mg PO DAILY metFORMIN HCL [Glucophage] 500 mg PO BID@0800,1600 lisinopriL [Zestril] 10 mg PO DAILY Discharge Medication List Acetaminophen [Tylenol 8 Hour] 650 mg PO Q6H PRN 08/08/23 [History] Albuterol Nebulized [Ventolin Nebulized] 2.5 mg INHALATION RT-Q4H PRN 08/08/23 [History] Apixaban [Eliquis] 5 mg PO BID@0800,1600 08/08/23 [History] Empagliflozin [Jardiance] 10 mg PO DAILY 08/08/23 [History] Ergocalciferol (Vitamin D2) [Drisdol (50,000 Iu)] 1,250 mcg PO TH 08/08/23 [History] Eucerin Itch Relief Lotion 0.1% 1 applic TOPICAL BID 08/08/23 [History] Folic Acid 0.8 mg PO DAILY 08/08/23 [History] Hydrocortisone Cream [Hydrocortisone 1% Cream] 1 applic TOPICAL BID 08/08/23 [History] Levothyroxine Sodium [Synthroid] 50 mcg PO DAILY 08/08/23 [History] Multivitamins, Thera [Multivitamin (formulary)] 1 tab PO DAILY 08/08/23 [History] Psyllium Husk (with Sugar) [Metamucil Powder] 1 tsp PO DAILY PRN 08/08/23 [History] Simvastatin [Zocor] 40 mg PO HS 08/08/23 [History] Bumetanide [BUMEX] 1 mg PO MOWEFR #0 08/10/23 [Rx] Follow up Appointment(s)/Referral(s): Jony Dillard MD [REFERRING] - 1-2 days Activity/Diet/Wound Care/Special Instructions: renal diet
[2023-08-10 11:58] LABS: Glucose,Whole Blood 134 mg/dL (70-110)
[2023-08-10 14:02] VITALS: BP 118/56; PULSE 66; TEMP 98.1
--- NOTE | 2023-08-10 19:13 | P.PN ---
Subjective patient is seen for follow-up for acute kidney injury. Maintained on IV bicarb. Serum creatinine decreased to 2.45 No significant complaints today. post void residual was 121 mL Objective - Vital Signs Vital signs: Vital Signs Temp 98.1 F 08/10/23 12:00 Pulse 66 08/10/23 12:00 Resp 18 08/10/23 12:00 BP 118/56 08/10/23 12:00 Pulse Ox 100 08/10/23 12:00 FiO2 Intake & Output 08/10/23 08/10/23 08/11/23 06:59 18:59 06:59 Intake Total 618 Output Total 302 Balance -302 618 Intake: Oral 618 Output: Urine 300 Stool 2 Other: Voiding Method External Catheter External Catheter # Voids 4 - Exam patient is awake, comfortable, no acute distress. Alert oriented 3. Examination of the heart S1 and S2 Examination of the lungs bilateral breath sounds are heard Abdomen is soft nontender Examination of lower extremity shows no significant edema ELECTRIC MOTOR ANALYST exam grossly intact - Labs CBC & Chem 7: 08/08/23 04:47 08/10/23 09:39 Labs: Abnormal Lab Results - Last 24 Hours (Table) 08/09/23 08/10/23 08/10/23 Range/Units 20:03 06:06 09:39 Sodium 135 L (137-145) mmol/L BUN 75 H (7-17) mg/dL Creatinine 2.45 H (0.52-1.04) mg/dL Glucose 158 H (74-99) mg/dL POC Glucose (mg/dL) 219 H 150 H (70-110) mg/dL Calcium 10.6 H (8.4-10.2) mg/dL 08/10/23 Range/Units 11:57 Sodium (137-145) mmol/L BUN (7-17) mg/dL Creatinine (0.52-1.04) mg/dL Glucose (74-99) mg/dL POC Glucose (mg/dL) 134 H (70-110) mg/dL Calcium (8.4-10.2) mg/dL Assessment and Plan Assessment: 1. Acute kidney injury, ATN, nonoliguric secondary to hypotension in the setting of use of LAURENCE inhibitor's. No evidence of obstructive uropathy. U/A not available yet. 2. Hyperkalemia associated with acute kidney injury metabolic acidosis and use of laurence inhibitors and Aldactone. Currently improved to 4.7. 3. Hypercalcemia associated with volume depletion. Patient denies use of calcium supplements. maintained on IV fluids. PTH is appropriately low. 4. Type 2 diabetes maintained on metformin 6. Non-gap metabolic acidosis associated with acute kidney injury. Patient was also on metformin. Lactic acid level not elevated Plan: Can DC IV bicarb Patient will need follow-up as outpatient for hypercalcemia and acute kidney injury. Continue off of calcium supplements
--- NOTE | 2023-08-13 19:41 | CDI ---
Documentation Clarification Form Date: 08/13/2023 07:32:31 PM From: Tejal Gonzalez Phone: Admit Date: 08/08/2023 06:24:00 AM Patient Name: Yoko Morton Visit Number: [id number] Discharge Date: 08/10/2023 02:07:00 PM ATTENTION: The Clinical Documentation Specialists (CDI) and [facility] Coding Staff appreciate your assistance in clarifying documentation. Please respond to the clarification below the line at the bottom and electronically sign. The CDI & [facility] Coding staff will review the response and follow-up if needed. Please note: Queries are made part of the Legal Health Record. If you have any questions, please contact the author of this message via ITS. Dr. Mayo Miller Your patient has the documented diagnosis of unspecified CHF per H&P, Consult 08/08, Progress Note 08/08 & . Additional information regarding the type of CHF is requested. History/Risk Factors: 77yo F, CHF,NIDDMII, HTN, HLD, CKD, RA, hypothyroid, hypercalcemia, A Fib, morbid obesity, Larry buttock/sacral stg 2 ulcers Clinical Indicators: VS/Pulse OX: 98 Chest X Ray: Mildcardiomegalywith diffuse leftlung edemaand/oracute infiltrate. Progress two-viewchest x-rayadvised. Treatment: monitored In your professional opinion, can you please clarify the type of CHF if known? [ ] Chronic Systolic Heart Failure (reduced EF) [ ] Chronic Diastolic Heart Failure (preserved EF) [ ] Chronic Systolic & Diastolic Heart Failure [ ] Other, please specify [ + ] Unable to determine (Template Last Revised: March 2020) MTDD
== END 2023-08-10 14:07 | DRG 291 ==
LOC: EC 04:39 → 3SCARD 06:24
PROVIDERS: ADMIT Hospitalist; ATTEND Hospitalist
DX: I13.0 Hypertensive heart and chronic kidney disease with heart failure and stage 1 through stage 4 chronic kidney disease, or unspecified chronic kidney disease (principal); N17.0 Acute kidney failure with tubular necrosis; E87.20 Acidosis, unspecified; Z68.41 Body mass index [BMI] 40.0-44.9, adult; N18.4 Chronic kidney disease, stage 4 (severe); L89.322 Pressure ulcer of left buttock, stage 2; L89.312 Pressure ulcer of right buttock, stage 2; L89.152 Pressure ulcer of sacral region, stage 2; E11.22 Type 2 diabetes mellitus with diabetic chronic kidney disease; I95.2 Hypotension due to drugs; F03.90 Unspecified dementia, unspecified severity, without behavioral disturbance, psychotic disturbance, mood disturbance, and anxiety; E66.01 Morbid (severe) obesity due to excess calories; M06.9 Rheumatoid arthritis, unspecified; I48.91 Unspecified atrial fibrillation; I50.9 Heart failure, unspecified; E86.0 Dehydration; Z79.01 Long term (current) use of anticoagulants; E03.9 Hypothyroidism, unspecified; E78.5 Hyperlipidemia, unspecified; E87.5 Hyperkalemia; E83.52 Hypercalcemia; Z79.84 Long term (current) use of oral hypoglycemic drugs; Z95.0 Presence of cardiac pacemaker; Z79.890 Hormone replacement therapy; T44.5X5A Adverse effect of predominantly beta-adrenoreceptor agonists, initial encounter; T50.0X5A Adverse effect of mineralocorticoids and their antagonists, initial encounter; T45.2X5A Adverse effect of vitamins, initial encounter; R53.81 Other malaise; Z74.09 Other reduced mobility; Z88.2 Allergy status to sulfonamides; Z87.891 Personal history of nicotine dependence; Z79.899 Other long term (current) drug therapy
CPT/HCPCS: 36415; 71045; 76770; 80048; 82306; 82652; 83605; 83735; 83970; 84132; 85025; 86334; 87324; 93005; 96365; 96366; 96375; 99285